=== PATIENT | male | born 1970 | race Caucasian/White ===

== ENCOUNTER 2017-08-27 19:36 | Emergency (ER) | payer BC, OTHER ==
[2017-08-27 19:55] VITALS: BP 137/55; PULSE 56; TEMP 98.4; BMI 27.3
--- NOTE | 2017-08-27 20:00 | PDOC ---
Rapid Medical Evaluation Time Seen by Provider: 08/27/17 19:52 Medical Evaluation: Allergies Allergy/AdvReac Type Severity Reaction Status Date / Time No Known Allergies Allergy Verified 08/27/17 19:52 08/27/17 19:53 I have performed a brief in-person evaluation of this patient. The patient presents with a chief complaint of: Pertinent physical exam findings:warm tender patellla with faint red streaks I have ordered the following: Knee xray, Cbc, CMP, ESR, CRP, The patient will proceed to the ED for further evaluation 08/27/17 20:01
[2017-08-27 20:43] LABS: BASO % 0.4 % (0-2.0); EOS % 1.3 % (0-4.5); HEMATOCRIT 45.6 % (35.4-49); HEMOGLOBIN 15.6 GM/dL (11.7-16.9); LYMPH % 26.3 % (8-40); MCH 31.7 pg (25.7-33.7); MCHC 34.2 g/dl (32.0-35.9); MEAN CELL VOLUME 92.8 fl (80-96); MEAN PLT VOLUME 7.8 fl (7.5-11.1); MONO % 9.5 % (3.8-10.2); NEUT % 62.5 % (42.8-82.8); PLATELET COUNT 185 K/MM3 (134-434); RBC 4.92 M/mm3 (4.00-5.60); RDW 12.6 % (11.9-15.9); WHITE BLOOD COUNT 6.9 K/mm3 (4.0-10.0)
[2017-08-27 21:05] LABS: ALBUMIN 4.3 g/dl (3.4-5.0); ALK PHOS 53 U/L (45-117); ANION GAP 8 (8-16); BILIRUBIN,TOTAL 0.5 mg/dL (0.2-1.0); BLOOD UREA NITROGEN 22 mg/dL (7-18); CALCIUM 9.1 mg/dL (8.5-10.1); CHLORIDE 101 mmol/L (98-107); CO2 31 mmol/L (21-32); GLUCOSE,RANDOM 83 mg/dL (74-106); POTASSIUM 4.1 mmol/L (3.5-5.1); SGOT/AST 25 U/L (15-37); SGPT/ALT 44 U/L (12-78); SODIUM 140 mmol/L (136-145); TOT PROT 7.1 g/dl (6.4-8.2)
--- NOTE | 2017-08-27 22:15 | PDOC ---
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 Denies fever, chills patient was sent to the ER by urgent care to rule out cellulitis. Slight streaking noted. Patient unsure of a skin puncture patient reports that she he does not use knee pads while working.denies trauma/injury. 08/27/17 22:16 Past History - Past Medical History Allergies/Adverse Reactions: Allergies Allergy/AdvReac Type Severity Reaction Status Date / Time No Known Allergies Allergy Verified 08/27/17 19:52 Home Medications: Ambulatory Orders Clindamycin [Cleocin -] 300 mg PO Q6HPO #40 capsule 08/27/17 Ibuprofen [Motrin -] 600 mg PO QID #28 tablet 08/27/17 COPD: No - Suicide/Smoking/Psychosocial Hx Smoking History: Never smoked Review of Systems - Review of Systems Able to Perform ROS?: Yes Is the patient limited Armenian proficient: No Musculoskeletal: Yes: Joint Swelling (right knee pain) *Physical Exam - Vital Signs Last Vital Signs Temp Pulse Resp BP Pulse Ox 98.4 F 56 L 18 137/55 100 08/27/17 19:53 08/27/17 19:53 08/27/17 19:53 08/27/17 19:53 08/27/17 19:53 - Physical Exam General Appearance: Yes: Appropriately Dressed Musculoskeletal: positive: Normal Inspection Extremity: positive: Swelling (right knee) Integumentary: positive: Normal Color, Dry, Warm Neurologic: positive: Fully Oriented, Alert, Normal Mood/Affect ED Treatment Course - LABORATORY CBC & Chemistry Diagram: 08/27/17 20:00 08/27/17 20:00 - ADDITIONAL ORDERS Additional order review: Laboratory Results 08/27/17 20:00 Sodium 140 Potassium 4.1 Chloride 101 Carbon Dioxide 31 Anion Gap 8 BUN 22 H Creatinine 1.0 Creat Clearance w eGFR > 60 Random Glucose 83 Calcium 9.1 Total Bilirubin 0.5 AST 25 ALT 44 Alkaline Phosphatase 53 Total Protein 7.1 Albumin 4.3 08/27/17 20:00 RBC 4.92 MCV 92.8 MCHC 34.2 RDW 12.6 MPV 7.8 Neutrophils % 62.5 Lymphocytes % 26.3 Monocytes % 9.5 Eosinophils % 1.3 Basophils % 0.4 *DC/Admit/Observation/Transfer Diagnosis at time of Disposition: Prepatellar bursitis, right knee - Discharge Dispostion Disposition: HOME - Prescriptions Prescriptions: Clindamycin [Cleocin -] 300 mg PO Q6HPO #40 capsule Ibuprofen [Motrin -] 600 mg PO QID #28 tablet - Referrals - Patient Instructions Printed Discharge Instructions: Bursitis Additional Instructions: take ibuprofen every 6 hours as needed for pain start Clindamycin as prescribed. follow up with an orthopedic doctor as soon as possible. return immediately to the ER if symptoms worsen. apply warm compress/ ice to the Area - Post Discharge Activity Forms/Work/School Notes: Back to Work
[2017-08-27] MEDS ORDERED: KETOROLAC TROMETHAMINE 30 MG/1 ML VIAL ONE (22:31)
[2017-08-28 01:25] LABS: ERYTHROCYTE SEDIMENTATION RATE 2 mm/hr (0-10)
== END 2017-08-27 23:12 | disposition home or self-care (01) ==
LOC: JER 19:36
DX: M70.41 Prepatellar bursitis, right knee (principal); Y93.9 Activity, unspecified
CPT/HCPCS: 36415; 73564-TC-RT-FY; 80053; 85025; 85651; 87040; 99281-25